=== PATIENT | male | born 1950 | race Asian ===

== ENCOUNTER 2018-10-16 16:59 | Observation (INO) | payer SELFPAY ==
--- NOTE | 2018-10-16 17:18 | CT ---
CT Brain WO Con: 10/16/2018 5:08 PM CLINICAL HISTORY: Stroke alert; right facial weakness and headache. IMAGING TECHNIQUE: Multiple CT images were obtained of the brain without IV contrast. COMPARISON: None. FINDINGS: Infarct: No acute infarct is evident. There is a remote large lacunar infarct involving the right co rpora striata. There is moderate chronic small vessel white matter ischemic change. Hemorrhage: None.. Hydrocephalus: None.. Basal cisterns: Normal.. Cerebral parenchyma: Normal.. Midline shift: None.. Cerebellum: Normal. Brainstem: Normal. OTHER: Calvarium: Intact.. Visualized Paranasal sinuses: Clear.. Extracranial soft tissues:Normal. IMPRESSION: No acute intracranial abnormality. Findings called Dr. Heller at 5:15 PM on 10/16/2018.
[2018-10-16 18:19] LABS: Hemoglobin 9.9 g/dL (14.0-18.0); Mean Corpuscular HGB CONC 31.7 g/dL (32.0-36.0); Mean Corpuscular Hemoglobin 22.7 pg (27.0-31.0); Mean Corpuscular Volume 71.4 fL (78.0-98.0); RBC Distribution Width 17.4 % (11.5-14.5); Red Blood Cell (RBC) Count 4.37 mill/uL (4.70-6.10); White Blood Cell (WBC) Count 5.6 thou/uL (4.8-10.8)
[2018-10-16 18:37] LABS: ALT (SGPT) 25 U/L (8-55); AST (SGOT) 54 U/L (5-34); Albumin 3.6 g/dL (3.4-4.8); Alkaline Phosphatase 164 U/L (40-150); Anion Gap 15 mmol/L (10-20); BUN (Urea Nitrogen) 10 mg/dL (8.4-25.7); Bilirubin, Total 0.7 mg/dL (0.2-1.2); Calc. Creatinine Clearance 0 mL/min (70-130); Calcium 8.9 mg/dL (7.8-10.44); Carbon Dioxide 23 mmol/L (23-31); Chloride 109 mmol/L (98-107); Estimated GFR-MDRD 82; Globulin 3.9 g/dL (2.4-3.5); Glucose 101 mg/dL (80-115); Potassium 3.5 mmol/L (3.5-5.1); Protein, Total 7.5 g/dL (5.8-8.1); Sodium 143 mmol/L (136-145)
[2018-10-16 18:44] LABS: #Eosinphils 0.1 thou/uL (0.0-0.7); #Lymphocytes 1.7 thou/uL (1.20-3.40); #Monocytes 0.5 thou/uL (0.11-0.59); #Neutrophils 3.3 thou/uL (1.40-6.50); %Basophils 0.7 % (0.0-1.0); %Eosinophils 1.7 % (0.0-10.0); %Lymphocytes 29.8 % (21.0-51.0); %Monocytes 8.3 % (0.0-10.0); %Neutrophils 59.5 % (42.0-75.0); Helmet Cells SLIGHT = 2-5 cells (100X) (0-1/hpf); Hypochromia SLIGHT = 6-15 cells (100X) (0-5/hpf); MDiff Complete? YES; Mean Platelet Volume 7.8 fL (7.4-10.4); Microcytosis SLIGHT = 6-15 cells (100X) (0-5/hpf); Platelet Count 74 thou/uL (130-400); Platelet Morphology Comment Appears Decreased; Polychromasia SLIGHT = 2-3 cells (100X) (0-2/hpf); Target Cells SLIGHT = 2-5 cells (100X) (0-1/hpf); Tear Drops SLIGHT = 2-5 cells (100X) (0-1/hpf)
[2018-10-16] MEDS ORDERED: Aspirin 325 MG TAB ONE (18:44)
[2018-10-16] MEDS ORDERED: predniSONE 20 MG TAB ONE (18:45)
[2018-10-16 21:48] VITALS: BMI 41.8
[2018-10-16] MEDS ORDERED: hydrALAZINE 20 MG/ML VIAL SLOW IVP PRN (22:14)
[2018-10-17] MEDS ORDERED: Ondansetron ODT 4 MG TAB PO PRN (01:19)
[2018-10-17] MEDS ORDERED: Ondansetron PF 4 MG/2 ML Vial IVP PRN (01:19)
[2018-10-17] MEDS ORDERED: Sodium Chloride 0.9% 1,000 ML IV SCH (01:30)
[2018-10-17 02:15] LABS: Hemoglobin 10.8 g/dL (14.0-18.0); Mean Corpuscular HGB CONC 32.2 g/dL (32.0-36.0); Mean Corpuscular Hemoglobin 22.9 pg (27.0-31.0); Mean Corpuscular Volume 71.2 fL (78.0-98.0); Platelet Count 77 thou/uL (130-400); RBC Distribution Width 17.4 % (11.5-14.5); White Blood Cell (WBC) Count 5.1 thou/uL (4.8-10.8)
[2018-10-17 02:35] LABS: Iron 18 ug/dL (65-175); Iron Binding Capacity, Total 418 mcg/dL (261-462)
[2018-10-17 02:43] LABS: #Lymphocytes 1.2 thou/uL (1.20-3.40); #Neutrophils 3.8 thou/uL (1.40-6.50); %Basophils 0.6 % (0.0-1.0); %Eosinophils 0.2 % (0.0-10.0); %Lymphocytes 24.2 % (21.0-51.0); %Monocytes 0.5 % (0.0-10.0); %Neutrophils 74.5 % (42.0-75.0); MDiff Complete? YES; Mean Platelet Volume 6.8 fL (7.4-10.4); Microcytosis SLIGHT = 6-15 cells (100X) (0-5/hpf); Platelet Morphology Comment Appears Decreased
[2018-10-17 02:44] LABS: Anion Gap 17 mmol/L (10-20); BUN (Urea Nitrogen) 12 mg/dL (8.4-25.7); Calc. Creatinine Clearance 124 mL/min (70-130); Calcium 9.2 mg/dL (7.8-10.44); Carbon Dioxide 20 mmol/L (23-31); Cardiac Risk 5.9 (Less than 4.5); Chloride 107 mmol/L (98-107); Cholesterol 153 mg/dl (< 200 Desired); Estimated GFR-MDRD 89; Glucose 153 mg/dL (80-115); HDL Cholesterol 26 mg/dL (>60 Neg Risk); LDL Cholesterol, Calculated 111 mg/dL; Potassium 3.6 mmol/L (3.5-5.1); Sodium 140 mmol/L (136-145); Triglycerides 82 mg/dL (Less than 150)
[2018-10-17] MEDS ORDERED: cloNIDine 0.1 MG TAB PO PRN (03:15)
[2018-10-17 05:18] LABS: Folate (Folic Acid) 14.8 ng/mL (7.0-31.4)
--- NOTE | 2018-10-17 07:22 | HP ---
PRIMARY CARE PHYSICIAN: None. CHIEF COMPLAINT: Right eye swelling. HISTORY OF PRESENT ILLNESS: Mr. Jordan is a pleasant 68-year-old gentleman with unknown past medical history. The patient is a poor historian and states he may have been diagnosed with hypertension in the past and previously on medications, but not taking anything currently. He does not have established care here in [place] as he has moved from [place]. He does not recall the last time he saw his primary care physician in [place] and states that he would visit a local clinic. The patient states he was in his usual state of health until Tuesday when he developed significant pain on the right side of his face and a right-sided headache. He states he took ibuprofen, which helped relieve his pain. The pain then recurred once and again improved after taking Motrin. The patient states the pain has completely settled and he is unsure when he began to experience right-sided facial paralysis. He states he tried to use Visine to help with irritation in the right eye after not being able to close the right eye and then experienced swelling to his right eyelid. The patient states he felt this was attributed to the Visine he used being . He had no other symptoms. No swelling elsewhere. He continues with paralysis with the right side of his face affecting his speech somewhat. Otherwise has been in his usual state of health and without complaints. Not experiencing any tenderness to the right side of his face. No blurred vision or double vision. No lightheadedness or dizziness. He has not experienced any unilateral weakness. All other review of systems are negative. The patient does recall being told he had a stroke in the past, but states after imaging was done, he was not told if the imaging confirmed he had a stroke. Denies having any residual neuro deficits from that. PAST MEDICAL HISTORY: Unknown. PAST SURGICAL HISTORY: None. SOCIAL HISTORY: The patient denies any tobacco use, alcohol consumption, or illicit drug use. He lives alone. PHYSICAL EXAMINATION: GENERAL: The patient appears obese, well developed, and in no acute distress. VITAL SIGNS: Temperature 98.5, pulse 72, respirations 18, O2 saturation 95% on room air, blood pressure 194/105. HEENT: Normocephalic and atraumatic. Pupils are equal, round, and reactive to light. Sclerae without icterus. Oropharynx is clear. NECK: Supple. LUNGS: Clear to auscultation bilaterally. CARDIAC: Regular rate and rhythm. ABDOMEN: Soft, nontender, nondistended. Normoactive bowel sounds present. EXTREMITIES: No lower leg swelling or edema. NEUROLOGIC: Alert and oriented x3. Power 5/5 in all limbs. Full range of motion. Sensation intact. He does have paralysis of the right side of his face without any associated tenderness to the face, right sabianism, or scalp. No tenderness in the shoulder. There is a bit of a language barrier and otherwise speech is normal. Facial movements abnormal due to paralysis of the right side of the face. No tongue deviation. SKIN: Warm and dry. LABORATORY DATA: Full blood count notable for a hemoglobin of 9.9, hematocrit 31.2, platelets of 74. Sodium 143, potassium 3.5, chloride 109, carbon dioxide 23, anion gap 15, BUN 10, creatinine 0.92, GFR 82, calcium 8.9, glucose 101, total bilirubin 0.7, AST 54, ALT 25, alkaline phosphatase 164. Troponin negative. Albumin 3.6. IMAGING DATA: CT of the brain, 10/16/2018, notable for a remote large lacunar infarct involving the right corpora striatum with moderate chronic small-vessel white matter ischemic change. IMPRESSION AND PLAN: Mr. Jordan is a very pleasant 68-year-old gentleman with unknown past medical history likely including hypertension, who presented with right facial paralysis, who is being referred for cerebrovascular accident/transient ischemic attack rule out. 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 It was preceded by pain and the pain has now resolved. There has been no affect on his visual acuity or peripheral vision. There is no tenderness on exam. However, I did add on an ESR and CRP. The patient had a CT brain that was negative for any acute changes, however, did show remote large lacunar infarct involving the right corpora striatum. He is high risk given uncontrolled blood pressure. We will give p.r.n. hydralazine for blood pressure and start him on amlodipine. To be further adjusted by Day Team. The patient has never undergone any investigations for previous cerebrovascular accident according to him, he was suspected of having one in the past, but it was never confirmed. We will request an echo as well as carotid Dopplers. We will obtain a fasting lipid panel. The patient's case has been discussed with Dr. Bello, who agrees with plan of care as described above. Code status is full. The patient is unable to name a surrogate decision maker at this time. Job ID: [id number]
--- NOTE | 2018-10-17 08:48 | ULT ---
US Carotid Doppler STANDARD History: TIA. Cerebrovascular accident. Comparison: None. Findings: Real-time grayscale, color, and spectral analysis of the extracranial carotid and vertebral arteries was performed. No elevated peak systolic velocities within the internal carotid arteries. Antegrade flow both verteb ral arteries. Right ICA/CCA ratio is 0.9 and the left ICA/CCA ratio is 0.6 Impression: No hemodynamically significant stenosis.
[2018-10-17] MEDS ORDERED: Amlodipine 5 MG TAB PO SCH (09:00)
[2018-10-17] MEDS ORDERED: Aspirin 81 mg Enteric Coated Tablet PO SCH (09:00)
[2018-10-17] MEDS ORDERED: Lisinopril 5 MG TAB PO SCH (09:00)
[2018-10-17] MEDS: Lisinopril 10 MG TAB PO SCH (10:06)
[2018-10-17] MEDS: Famotidine/PF 20 mg/2ml Vial SLOW IVP SCH ×2 (10:06→20:59)
--- NOTE | 2018-10-17 11:10 | MRI ---
BRAIN MRI NONCONTRAST: Date: 10/17/18 COMPARISON: Head CT previous day. INDICATION: Right facial weakness with headache. FINDINGS: No acute territorial infarction, mass effect, or midline shift. There is hemosiderin deposition of th e right tran radiata related to chronic infarction. There is ex vacuo dilatation of the ventricular system, as a result. Motion artifact limits detail. There is moderate chronic microvascular ischemic disease of the cerebral white matter. IMPRESSION: 1. No acute intracranial abnormalities. 2. Chronic lacunar infarction of the right tran radiata with associated hemosiderin deposition and ex vacuo dilatation of the right lateral ventricle. 3. Chronic microvascular ischemic disease of the cerebral white matter. POS: [facility]
[2018-10-17] MEDS ORDERED: predniSONE 20 MG TAB PO SCH (14:45)
[2018-10-17] MEDS: Polyethylene Glycol OPTH DROP 15 ML BOT EA EYE PRN (15:52)
[2018-10-17] MEDS: valACYclovir 500 MG TAB PO SCH (20:59)
[2018-10-17] MEDS ORDERED: Prevnar 13-Val Conj/PF 0.5 ML SYRINGE IM ONE (21:00)
[2018-10-17] MEDS ORDERED: Atorvastatin Calcium 40 MG TAB PO SCH (21:00)
[2018-10-18] MEDS ORDERED: predniSONE 20 MG TAB PO SCH ×2 (08:00)
[2018-10-18] MEDS: valACYclovir 500 MG TAB PO SCH (08:52)
[2018-10-18] MEDS: Lisinopril 10 MG TAB PO SCH (08:53)
[2018-10-18 08:57] VITALS: BP 146/83
[2018-10-18] MEDS: Polyethylene Glycol OPTH DROP 15 ML BOT EA EYE PRN (08:57)
[2018-10-18] MEDS ORDERED: Aspirin 325 MG TAB PO SCH (09:00)
[2018-10-18] MEDS: Famotidine/PF 20 mg/2ml Vial SLOW IVP SCH (10:10)
[2018-10-18 10:54] VITALS: TEMP 97.6
--- NOTE | 2018-10-19 01:08 | DIS ---
DATE OF ADMISSION: 10/16/2018 DATE OF DISCHARGE: 10/18/2018 REASON FOR HOSPITALIZATION: Right-sided facial asymmetry with acute onset. SIGNIFICANT FINDINGS: The patient had MRI of the brain, please see full report for details, no acute intracranial pathology was identified. However, there is evidence of old CVA. PROCEDURES PERFORMED AND TREATMENTS RENDERED: A comprehensive stroke workup was conducted and found to be benign for acute CVA. The patient was diagnosed with Braswell's palsy and was placed on appropriate medical therapy with some improvement in symptoms. CONDITION ON DISCHARGE: Stable. SPECIFIC INSTRUCTIONS FOR THE PATIENT AND FAMILY: 1. The patient is recommended to complete a full course of oral medications for Braswell's palsy, including prednisone 60 mg one tablet p.o. daily for a total of 6 days. 2. The patient is recommended to take acyclovir 400 mg five times per day for a total of 6 days. 3. The patient is started on stroke regimen as follows: Atorvastatin 40 mg one tablet p.o. at bedtime; aspirin 325 mg one tablet p.o. daily; lisinopril 10 mg one tablet p.o. daily. 4. The patient is recommended to follow up with primary care physician in the next 5 to 7 days-or return to acute care hospital immediately if unable to be seen. 5. The patient is recommended to follow up with Neurology in the next 1 to 2 weeks-or return to acute care hospital immediately if unable to be seen. When the patient sees Neurology, he is to discuss further modifiable risk factors to lower his chance of cerebral vascular accident. HOSPITAL COURSE: Mr. Jordan is a pleasant 68-year-old gentleman with past medical history of hypertension, hyperlipidemia, CVA, and elevated BMI, who does not take any medications or follow up with doctors as he does not have insurance, who presents with acute onset of right-sided facial asymmetry. The patient tells me that he believes he had a stroke in the past when he lived in [place]; however, he was never confirmed 100% that he did have a stroke. The patient was previously on blood pressure and cholesterol medications, so he stopped these medications as he does not have insurance and does not follow up with doctors. The patient presented to acute care hospital at [facility] on 10/16/2018, with acute neurologic deficits and there was concern for CVA. The patient was admitted to stroke unit and a thorough stroke workup was conducted. The patient had an MRI of the brain, please see full report for details, there is no acute intracranial abnormalities and no acute CVA seen; however, there is evidence of an old right-sided lacunar infarct. The patient also with chronic microvascular ischemic changes and white matter changes of the brain. The patient had a carotid ultrasound, please see full report for details, there was no hemodynamically significant stenosis bilaterally. The patient had an echocardiogram, please see full report for details, the patient with preserved ejection fraction without significant valvular or anatomic pathology. The patient had a metabolic workup, please see full laboratory data for details. With physical exam findings suggestive of Braswell's palsy, the patient was started on oral medications including corticosteroid therapy and antiviral therapy. The patient states that he did notice some improvement in his facial asymmetry with right-sided deficits, I agree that there is some improvement in right-sided deficits and the patient is now able to close his eye. The patient also was complaining of right-sided facial pain and a burning sensation. This also has completely resolved. There was no evidence of vesicular eruption or concern for ocular involvement. The patient is having intact vision without deficits. The patient is ambulating to and from the restroom and walking around the halls without difficulties. The patient tolerating diet. The patient is recommended safe for discharge with close followup in the outpatient setting. The patient is recommended to follow up with primary care physician in the next 5 to 7 days-or return to acute care hospital immediately if unable to be seen. The patient is recommended to follow up with neurologist in the next 1 to 2 weeks-or return to acute care hospital immediately if unable to be seen. The patient needs to follow up with Neurology as he has history of CVA, he is now placed on a stroke regimen so he should discuss modifiable risk factors including diet and exercise in more detail and see if there is anything else that the patient can do to further avoid a second stroke. I discussed with the patient and his family at bedside about insurance. As the patient is 68-year-old gentleman, he is eligible for Medicare and he needs to fill out the proper paperwork for Medicare. Efforts were made with nursing staff to help the patient in this process. The patient is recommended to return to acute care hospital immediately if signs or symptoms return, worsen, or any other new symptoms occur. Greater than 36 minutes spent coordinating care and discharge process for this patient. Job ID: [id number]
== END 2018-10-18 12:54 | disposition home or self-care (01) ==
LOC: ERS 16:59 → 2SE 19:10
PROVIDERS: ADMIT Hospitalist; ATTEND Hospitalist
DX: I63.81 Other cerebral infarction due to occlusion or stenosis of small artery (principal); R29.810 Facial weakness; R51 Headache; I10 Essential (primary) hypertension; E78.5 Hyperlipidemia, unspecified
CPT/HCPCS: 36415; 70450; 70551; 80048; 80053; 80061; 82607; 82728; 82746; 83540; 83550; 83880; 84484; 85025; 85652; 86140; 90471; 90670; 93005; 93306; 93880; 96361; 96374; 96376; G0009; G0378; J7512; S0028

== ENCOUNTER 2020-10-24 15:38 | Emergency (ER) | payer MEDICARE, OTHER ==
[2020-10-24 16:52] LABS: #Basophils 0.1 thou/uL (0.0-0.2); #Eosinphils 0.2 thou/uL (0.0-0.7); #Lymphocytes 2.2 thou/uL (1.20-3.40); #Monocytes 0.7 thou/uL (0.11-0.59); #Neutrophils 4.5 thou/uL (1.40-6.50); %Basophils 0.8 % (0.0-1.0); %Lymphocytes 28.8 % (21.0-51.0); %Monocytes 9.1 % (0.0-10.0); %Neutrophils 59.4 % (42.0-75.0); Hemoglobin 7.1 g/dL (14.0-18.0); Mean Corpuscular Hemoglobin 19.4 pg (27.0-31.0); Mean Corpuscular Volume 65.6 fL (78.0-98.0); Red Blood Cell (RBC) Count 3.66 mill/uL (4.70-6.10); White Blood Cell (WBC) Count 7.6 thou/uL (4.8-10.8)
[2020-10-24 17:09] LABS: Anisocytosis MODERATE=16-30 cells (100X) (0-5/hpf); Hypochromia SLIGHT = 6-15 cells (100X) (0-5/hpf); MDiff Complete? YES; Mean Corpuscular HGB CONC 29.5 g/dL (32.0-36.0); Mean Platelet Volume 5.2 fL (7.4-10.4); Platelet Count 314 thou/uL (130-400); Platelet Morphology Comment Appears Adequate; RBC Distribution Width 22.5 % (11.5-14.5)
[2020-10-24 17:10] LABS: ALT (SGPT) 32 U/L (8-55); AST (SGOT) 110 U/L (5-34); Albumin 2.2 g/dL (3.4-4.8); Alkaline Phosphatase 159 U/L (40-110); Anion Gap 11 mmol/L (10-20); BUN (Urea Nitrogen) 15 mg/dL (8.4-25.7); Bilirubin, Total 1.7 mg/dL (0.2-1.2); Calc. Creatinine Clearance 0 mL/min (70-130); Calcium 7.9 mg/dL (7.8-10.44); Carbon Dioxide 20 mmol/L (23-31); Chloride 105 mmol/L (98-107); Globulin 4.8 g/dL (2.4-3.5); Glucose 108 mg/dL (80-115); Potassium 3.5 mmol/L (3.5-5.1); Sodium 132 mmol/L (136-145)
== END 2020-10-24 17:08 | disposition home or self-care (01) ==
LOC: ERS 15:38
PROC: 30233N1 Transfusion of Nonautologous Red Blood Cells into Peripheral Vein, Percutaneous Approach (ICD-10-PCS; principal; 2020-10-24)
DX: D64.9 Anemia, unspecified (principal); R16.0 Hepatomegaly, not elsewhere classified; I10 Essential (primary) hypertension; I50.9 Heart failure, unspecified; Z79.82 Long term (current) use of aspirin; Z79.899 Other long term (current) drug therapy; D50.9 Iron deficiency anemia, unspecified
CPT/HCPCS: 36415; 36430; 80053; 82248; 82607; 82728; 82746; 83540; 83550; 83615; 84100; 84165; 84443; 84550; 85025; 85046; 86704; 86705; 86706; 86707; 86803; 86850; 86900; 86901; 87340; 87350; 99284; P9016; Q0163

== ENCOUNTER 2020-10-24 17:08 | Day surgery (SDC) | payer MEDICARE, OTHER ==
[2020-10-24] MEDS ORDERED: diphenhydrAMINE 25 MG CAP PO SCH (18:30)
[2020-10-24] MEDS ORDERED: Acetaminophen 500 MG TAB PO SCH (18:30)
[2020-10-25 04:07] LABS: #Eosinphils 0.2 thou/uL (0.0-0.7); #Lymphocytes 2.4 thou/uL (1.20-3.40); #Monocytes 0.8 thou/uL (0.11-0.59); #Neutrophils 4.1 thou/uL (1.40-6.50); %Basophils 0.5 % (0.0-1.0); %Eosinophils 2.6 % (0.0-10.0); %Lymphocytes 32.4 % (21.0-51.0); %Monocytes 10.7 % (0.0-10.0); %Neutrophils 53.8 % (42.0-75.0); Anisocytosis MODERATE=16-30 cells (100X) (0-5/hpf); Hemoglobin 8.4 g/dL (14.0-18.0); Hypochromia SLIGHT = 6-15 cells (100X) (0-5/hpf); MDiff Complete? YES; Mean Corpuscular HGB CONC 31.9 g/dL (32.0-36.0); Mean Corpuscular Hemoglobin 22.4 pg (27.0-31.0); Mean Corpuscular Volume 70.3 fL (78.0-98.0); Mean Platelet Volume 5.1 fL (7.4-10.4); Microcytosis SLIGHT = 6-15 cells (100X) (0-5/hpf); Platelet Count 224 thou/uL (130-400); RBC Distribution Width 24.1 % (11.5-14.5); Red Blood Cell (RBC) Count 3.76 mill/uL (4.70-6.10); Target Cells SLIGHT = 2-5 cells (100X) (0-1/hpf); White Blood Cell (WBC) Count 7.5 thou/uL (4.8-10.8)
[2020-10-25 08:33] VITALS: BP 131/65; TEMP 98.5
== END 2020-10-25 10:03 | disposition home or self-care (01) ==
LOC: SDC/OP 17:08 → ONC 17:24 → SDC/OP 10-25 10:03
PROVIDERS: ATTEND Internal Medicine Hematology & Oncology
PROC: 30233N1 Transfusion of Nonautologous Red Blood Cells into Peripheral Vein, Percutaneous Approach (ICD-10-PCS; principal; 2020-10-25)
DX: D64.9 Anemia, unspecified (principal); D69.6 Thrombocytopenia, unspecified
CPT/HCPCS: 36415; 36430; 80053; 82248; 82607; 82728; 82746; 83540; 83550; 83615; 84100; 84165; 84443; 84550; 85025; 85046; 86704; 86705; 86706; 86707; 86803; 86850; 86900; 86901; 87340; 87350; 99284; P9016

== ENCOUNTER 2021-02-24 10:55 | Inpatient (IN) | payer MEDICARE ==
[2021-02-24] MEDS ORDERED: Sodium Chloride 0.9% 1,000 ML IV SCH (12:30)
[2021-02-24 12:44] LABS: #Lymphocytes 0.4 thou/uL (1.20-3.40); #Monocytes 0.7 thou/uL (0.11-0.59); %Basophils 0.4 % (0.0-1.0); %Eosinophils 0.4 % (0.0-10.0); %Neutrophils 87.2 % (42.0-75.0); Mean Corpuscular HGB CONC 32.9 g/dL (32.0-36.0); Mean Corpuscular Hemoglobin 28.6 pg (27.0-31.0); Mean Corpuscular Volume 86.9 fL (78.0-98.0); Mean Platelet Volume 9.2 fL (7.4-10.4); Platelet Count 168 thou/uL (130-400); RBC Distribution Width 24.2 % (11.5-14.5); Red Blood Cell (RBC) Count 3.15 mill/uL (4.70-6.10); White Blood Cell (WBC) Count 9.2 thou/uL (4.8-10.8)
[2021-02-24 12:57] LABS: Bilirubin, Total 17.9 mg/dL (0.2-1.2); Calcium 8.2 mg/dL (7.8-10.44); Chloride 93 mmol/L (98-107); Sodium 128 mmol/L (136-145)
[2021-02-24 13:14] LABS: ALT (SGPT) 47 U/L (8-55); AST (SGOT) 165 U/L (5-34); Albumin 1.9 g/dL (3.4-4.8); Alkaline Phosphatase 242 U/L (40-110); Anion Gap 13 mmol/L (10-20); BUN (Urea Nitrogen) 57 mg/dL (8.4-25.7); Calc. Creatinine Clearance 0 mL/min (70-130); Carbon Dioxide 24 mmol/L (23-31); Globulin 4.5 g/dL (2.4-3.5); Glucose 101 mg/dL (80-115); Protein, Total 6.4 g/dL (5.8-8.1)
[2021-02-24] MEDS ORDERED: FLU VACC QS2021-22(65YR UP)/PF 240 MCG/0.7 ML SYRINGE IM ONE (13:15)
[2021-02-24 13:17] LABS: Potassium 2.9 mmol/L (3.5-5.1)
[2021-02-24] MEDS ORDERED: Senokot S 8.6-50 MG TAB PO PRN (14:52)
[2021-02-24] MEDS ORDERED: Ondansetron PF 4 MG/2 ML Vial IVP PRN (14:52)
[2021-02-24] MEDS: NS 0.9% w/ 40 MEQ KCL 1,000 ML IV SCH ×2 (15:24→23:21)
[2021-02-24] MEDS: Albumin 25% 25 GM/100 ML BOT IVPB SCH ×2 (15:25→20:13)
[2021-02-24] MEDS ORDERED: Sodium Bicarbonate 2.5 MEQ/5 ML VIAL ONE (16:16)
[2021-02-24] MEDS ORDERED: Lidocaine 1% PF 5 ML VIAL ONE (16:16)
[2021-02-24] MEDS ORDERED: Sodium Chloride 0.9% 10 ML ONE (16:42)
[2021-02-24 18:16] LABS: RBC Count-Automated (BF) 355 /cu.mm; WBC/Nucleated-Auto (BF) 82 /cu.mm
[2021-02-24 18:31] LABS: BF Color Yellow; Body Fluid Source Ascites Body Fluid; Clarity Hazy (Clear); Tube # EDTA
[2021-02-24 18:35] LABS: BF Segmented Neutrophils 34 %; Cell Count Non Hematic 34 %; Lymphocytes 31 %
[2021-02-24] MEDS: Rifaximin 550 MG TAB PO SCH (20:13)
[2021-02-25 01:12] LABS: SARS-CoV-2 PCR by NAA Not Detected (NotDetected)
[2021-02-25] MEDS: Albumin 25% 25 GM/100 ML BOT IVPB SCH ×3 (02:24→14:24)
[2021-02-25 07:46] LABS: #Basophils 0.1 thou/uL (0.0-0.2); #Eosinphils 0.1 thou/uL (0.0-0.7); #Lymphocytes 0.4 thou/uL (1.20-3.40); #Monocytes 0.6 thou/uL (0.11-0.59); %Eosinophils 0.8 % (0.0-10.0); %Lymphocytes 6.1 % (21.0-51.0); %Neutrophils 84.1 % (42.0-75.0); Hemoglobin 8.2 g/dL (14.0-18.0); Mean Corpuscular HGB CONC 33.4 g/dL (32.0-36.0); Mean Corpuscular Hemoglobin 28.9 pg (27.0-31.0); Mean Corpuscular Volume 86.4 fL (78.0-98.0); Mean Platelet Volume 9.4 fL (7.4-10.4); Platelet Count 154 thou/uL (130-400); RBC Distribution Width 24.3 % (11.5-14.5); Red Blood Cell (RBC) Count 2.85 mill/uL (4.70-6.10); White Blood Cell (WBC) Count 7.2 thou/uL (4.8-10.8)
[2021-02-25 08:04] LABS: Anisocytosis MODERATE=16-30 cells (100X) (0-5/hpf); MDiff Complete? YES; Platelet Morphology Comment Appears Adequate; Polychromasia SLIGHT = 2-3 cells (100X) (0-2/hpf); Target Cells MODERATE= 6-15 cells (100X) (0-1/hpf)
[2021-02-25 08:08] LABS: ALT (SGPT) 35 U/L (8-55); AST (SGOT) 109 U/L (5-34); Albumin 2.6 g/dL (3.4-4.8); Alkaline Phosphatase 207 U/L (40-110); Anion Gap 15 mmol/L (10-20); BUN (Urea Nitrogen) 54 mg/dL (8.4-25.7); Bilirubin, Total 18.8 mg/dL (0.2-1.2); Calc. Creatinine Clearance 34 mL/min (70-130); Calcium 8.7 mg/dL (7.8-10.44); Carbon Dioxide 24 mmol/L (23-31); Chloride 96 mmol/L (98-107); Globulin 3.5 g/dL (2.4-3.5); Glucose 102 mg/dL (80-115); Potassium 3.1 mmol/L (3.5-5.1); Protein, Total 6.1 g/dL (5.8-8.1); Sodium 132 mmol/L (136-145)
[2021-02-25] MEDS: NS 0.9% w/ 40 MEQ KCL 1,000 ML IV SCH ×2 (08:45→19:49)
[2021-02-25] MEDS: Rifaximin 550 MG TAB PO SCH ×2 (08:45→19:49)
[2021-02-25] MEDS ORDERED: Potassium Chloride 20 MEQ TAB PO SCH (09:00)
[2021-02-25] MEDS ORDERED: TENOFOVIR ALAFENAMIDE FUMARATE 25 MG PO SCH ×2 (09:00)
[2021-02-25] MEDS ORDERED: Non-Formulary Item 1 EACH (Esomeprazole Magnesium [Nexium Oral Suspension] 40 MG Suspdr.P PO SCH (09:00)
[2021-02-25] MEDS ORDERED: Magnevist 469MG/ML 20 ML VIAL ONE (10:41)
[2021-02-25 11:03] VITALS: BMI 28.8
[2021-02-26] MEDS: NS 0.9% w/ 40 MEQ KCL 1,000 ML IV SCH ×2 (05:24→16:43)
[2021-02-26] MEDS: Rifaximin 550 MG TAB PO SCH ×2 (09:37→22:13)
[2021-02-27] MEDS: NS 0.9% w/ 40 MEQ KCL 1,000 ML IV SCH ×3 (03:05→22:37)
[2021-02-27] MEDS: Rifaximin 550 MG TAB PO SCH ×2 (08:12→22:35)
[2021-02-28] MEDS: Rifaximin 550 MG TAB PO SCH ×2 (08:19→21:03)
[2021-02-28] MEDS: NS 0.9% w/ 40 MEQ KCL 1,000 ML IV SCH ×3 (08:25→19:24)
[2021-02-28 14:12] LABS: HBV as IU/mL 1410 IU/mL (.); Log 10 HBV as IU/mL 3.149 (.)
[2021-03-01] MEDS: NS 0.9% w/ 40 MEQ KCL 1,000 ML IV SCH (03:15)
[2021-03-01] MEDS: Rifaximin 550 MG TAB PO SCH ×2 (08:33→20:35)
[2021-03-01 09:05] LABS: Anion Gap 16 mmol/L (10-20); BUN (Urea Nitrogen) 40 mg/dL (8.4-25.7); Calc. Creatinine Clearance 35 mL/min (70-130); Calcium 9.5 mg/dL (7.8-10.44); Carbon Dioxide 13 mmol/L (23-31); Chloride 109 mmol/L (98-107); Glucose 112 mg/dL (80-115); Potassium 5.6 mmol/L (3.5-5.1); Sodium 132 mmol/L (136-145)
[2021-03-02] MEDS: Rifaximin 550 MG TAB PO SCH ×2 (08:32→20:57)
[2021-03-03 08:34] VITALS: TEMP 97.5
[2021-03-03] MEDS: Rifaximin 550 MG TAB PO SCH (09:02)
[2021-03-03] MEDS ORDERED: Lidocaine 1% PF 5 ML VIAL ONE (09:07)
[2021-03-03] MEDS ORDERED: Sodium Bicarbonate 2.5 MEQ/5 ML VIAL ONE (09:07)
[2021-03-03] MEDS ORDERED: Morphine 2 MG/ML VIAL SLOW IVP PRN (12:32)
[2021-03-03] MEDS ORDERED: HYDROcodone/Acetaminophen 5/325 mg Tablet PO PRN (12:33)
[2021-03-03] MEDS ORDERED: Morphine 4 MG/ML VIAL SLOW IVP PRN (12:52)
[2021-03-03 18:07] VITALS: BP 98/65
== END 2021-03-03 17:52 | DRG 435 ==
LOC: T4-A 10:55
PROVIDERS: ADMIT Family Medicine; ATTEND Internal Medicine
PROC: 0W9G3ZZ Drainage of Peritoneal Cavity, Percutaneous Approach (ICD-10-PCS; principal; 2021-02-24)
PROC: 30233J1 Transfusion of Nonautologous Serum Albumin into Peripheral Vein, Percutaneous Approach (ICD-10-PCS; 2021-02-24)
PROC: 0W9G3ZZ Drainage of Peritoneal Cavity, Percutaneous Approach (ICD-10-PCS; 2021-03-03)
DX: C22.0 Liver cell carcinoma (principal); K83.1 Obstruction of bile duct; I81 Portal vein thrombosis; E43 Unspecified severe protein-calorie malnutrition; B18.1 Chronic viral hepatitis B without delta-agent; N17.9 Acute kidney failure, unspecified; E87.1 Hypo-osmolality and hyponatremia; R18.0 Malignant ascites; E87.6 Hypokalemia; K74.60 Unspecified cirrhosis of liver; N18.9 Chronic kidney disease, unspecified; K72.10 Chronic hepatic failure without coma; Z66 Do not resuscitate; Z20.822 Contact with and (suspected) exposure to COVID-19; Z79.899 Other long term (current) drug therapy; Z68.28 Body mass index [BMI] 28.0-28.9, adult
CPT/HCPCS: 36415; 49083; 74183; 76705; 76770; 80048; 80053; 85025; 85060; 87070; 87205; 87517; 89051; 93975; A9579; J2270; J3480; P9047; U0003; U0005